=== PATIENT | female | born 1995 | race Caucasian/White ===

== ENCOUNTER 2018-02-07 18:06 | Observation (INO) | payer MEDICAID, SELFPAY ==
[2018-02-07 19:23] LABS: ROM Plus Negative
== END 2018-02-07 20:52 | disposition home or self-care (01) ==
PROVIDERS: Family Medicine; Admitting Provider Family Medicine; PCP Nurse Practitioner; Visit Provider Family Medicine
DX: O60.03 Preterm labor without delivery, third trimester (principal); Z03.71 Encounter for suspected problem with amniotic cavity and membrane ruled out; Z3A.36 36 weeks gestation of pregnancy
CPT/HCPCS: 84112; 87081; G0378

== ENCOUNTER 2018-03-12 22:10 | Inpatient (IN) | payer MEDICAID, SELFPAY ==
[2018-03-13] VITALS (10 sets, daily range): BP systolic 98–116; BP diastolic 56–69; PULSE 60–74; RESP 14–21; TEMP 36.3–36.6; O2SAT 95–98
[2018-03-13] MEDS: Lactated Ringers 1,000 ML 1000 ML IV ×2 (01:19→06:30)
[2018-03-13 06:22] LABS: HCT 29.3 % (36.0-46.0); HGB 9.3 g/dL (12.0-15.5); Mean Corp. HGB Concentration 31.7 g/dL (32.0-36.0); Mean Corpuscular Hemoglobin 23.4 pg (27.0-33.0); Mean Corpuscular Volume 73.8 fL (80-95); Mean Platelet Volume 10.5 fL (8.0-11.0); Platelet Count 338 x1000/uL (130-400); RBC 3.97 m/cumm (4.00-5.20); RBC Distribution Width 16.2 % (11.7-14.6); White Blood Cell Count 6.29 k/cumm (4.4-10.8)
[2018-03-13] MEDS: Normal Saline Flush 10 ML SYR IVP (06:30)
[2018-03-13] MEDS: Sodium Citrate 30 ML CUP PO (06:57)
--- NOTE | 2018-03-13 07:48 | HPE_ITS ---
Date of service: 03/13/18 Time of Service: 07:44 Assessment and Plan (1) Breech or malpresentation convert to cephalic presentation antepartum: Current visit: Yes Status: Acute primary c/section History of Present Illness Chief Complaint: 22 breech Narrative: 40.6 weeks induction + breech presentation Review of Systems Review of Systems All systems reviewed & are unremarkable except as noted in HPI and below PFSH Medical History Feeding by G-tube (Acute) Hypothyroidism (acquired) (Acute) Tracheostomy in place (Acute) Asthma (Chronic) Social History Smoking/Tobacco Use Status: Never Surgical History Status post laryngectomy (Acute) History History 2 2 Para 1 Hx # Term Pregnancies Multiple births Hx # Pregnancies Ectopic pregnancies AB induced Hx Number of Living Children AB spontaneous Meds Home Medications Medication Instructions Recorded Confirmed Type albuterol sulfate 0.63 mg INHALATION QID PRN 03/13/18 03/13/18 History Allergies Allergy/AdvReac Type Severity Reaction Status Date / Time blueberry Allergy Unverified 03/13/18 06:14 cranberry Allergy Unverified 03/13/18 06:14 fentanyl Allergy Unverified 03/13/18 06:14 omeprazole Allergy Unverified 03/13/18 06:14 silver Allergy Unverified 03/13/18 06:14 [From Tegaderm AG Mesh] Exam Const General: cooperative Chest Chest: normal inspection of the chest Resp Percussion: other (tracheostomy, lungs cta) Cardio Rate: regular rate Rhythm: regular rhythm Results Labs : 03/13/18 06:10 Laboratory Results - last 24 hr 03/13/18 03/13/18 06:10 06:10 WBC 6.29 RBC 3.97 L Hgb 9.3 L Hct 29.3 L MCV 73.8 L MCH 23.4 L MCHC 31.7 L RDW 16.2 H Plt Count 338 MPV 10.5 Patient ABO/Rh A Positive Antibody Screen Negative
[2018-03-13] MEDS: Lactated Ringers 1,000 ML 80 ML IV (07:51)
[2018-03-13] MEDS: Bupivacaine 0.25% Pres-Free 10 ML VIAL (09:07)
[2018-03-13] MEDS: Naloxone 0.4 MG/ML VIAL IVP (11:44)
[2018-03-13] MEDS: NALBUPHINE 5 MG in Normal Saline 50 ML 100 MG IVPB (14:33)
[2018-03-13] MEDS: Lactated Ringers 1,000 ML 125 ML IV (14:34)
[2018-03-13] MEDS: Acetaminophen 325 MG TAB 650 MG NG (15:20)
[2018-03-13] MEDS: Ibuprofen 600 MG TAB PO (15:22)
--- NOTE | 2018-03-13 16:36 | SATEXT_ITS ---
Assessment: Ni reports that she gets most of her nutrition via her PEG tube. She does Saltese Instant Breakfast and Boost. She does milk and yogurt and she will also blenderize meals and put them through her tube. She reports that she gets plenty of fluids per her tube to stay well hydrated. She is 63 and 80.7 kg which gives her a BMI of 31.5 kg/m2. I do believe 80.7 kg was her weight prior to delivery. Her estimated energy needs are approximately 2400 kcal/day (30 kcal/kg). Her estimated protein needs are approximately 80 grams per day (1.0g/kg) Her estimated fluid needs are approximately 2400 ml/ day (1 ml/kcal provided/day). Nutritional Diagnosis: Inability to take adequate oral foods and fluids. Intervention: Will provide Ni with nutrition via PEG tube as she does at home. Would recommend a diet order of regular consistency: blenderized and we can send her some blenderized meals should she desire while she is here. Monitoring and Evaluation: 1. Will monitor weight, PEG tube intake. RD and/or CDM will visit Ni to see what she would like per PEG. 2. Will evaluate nutrition care plan ongoing. Thank you for the consult.
--- NOTE | 2018-03-13 16:36 | W.PM.OP ---
Date of service: 03/13/18 Time of Service: 08:00 Operative Note DATE OF PROCEDURE: 03/13/18 PRE-OP DIAGNOSIS: Term Breech Presentation POST-OP DIAGNOSIS: same PROCEDURE: Primary Low Transverse Section SURGEON: Rebecca Waterman ANESTHESIA: spinal ESTIMATED BLOOD LOSS: 300 PATHOLOGY: none sent COMPLICATIONS: None Patient was transported to: PACU Patient's condition: stable Indications: Malpresentation Breech Findings: Vincent breech LSA, normal uterus tubes and ovaries Viable male infant apgars and weight not available at time of dictation Procedure Description: Primary low transverse incision. Patient was brought to the operating room where she was properly identified she was then placed in the sitting position on the operating table and spinal anesthesia was induced without difficulty. She was then placed on the operating table in the dorsal supine position with a left lateral tilt. A vaginal prep with Betadine was performed and then the patient was prepped and draped in the normal sterile fashion. She had a indwelling Hernández catheter and SCD boots and she received 2 g of Ancef preoperatively. Once the patient was prepped and draped in a formal timeout procedure was then performed with all surgical personnel present confirming patient procedure and anesthesia comments. After establishing adequate spinal anesthesia a Pfannenstiel incision was made approximately 2 cm above the symphysis pubis and carried down to the underlying fascia the fascia was nicked in the midline and extended sharply bilaterally with Sehlby scissors. Using the Charley clamps the inferior aspect of the fascia was then grasped bilaterally with Cook clamps tented up the rectus muscles dissected off sharply then the superior aspect of the fascia was grasped grasped bilaterally with Cook clamps tented up the rectus muscles dissected off sharply the rectus muscles in the midline the peritoneum was entered bluntly this was extended superiorly and inferiorly inferiorly with good visualization of the bladder. The bladder blade was then positioned the vesicouterine peritoneum was grasped with a pickup tented up and entered sharply with the Metzenbaum scissors the bladder flap was then created digitally and sharply and the bladder blade was repositioned the lower uterine segment was transversely incised the underlying uterine cavity was clear amniotic fluid and the low transverse incision was extended manually hand inserted into the uterine cavity the was found in the vincent breech sacrum anterior to the left was rotated to sacrum anterior and delivered to the level of the scapula the left shoulder than the right shoulder were delivered there was nuchal cord was loose nuchal cord x3 which was easily reduced the cord was clamped x2 and cut and the infant handed off to the waiting family practitioner . The placenta was then delivered by uterine expression once the placenta was delivered uterus was exteriorized and cleared of all clots and debris. Was closed in 2 layers the first layer of 0 Vicryl in a running locked fashion and the second layer in an imbricating fashion to achieve hemostasis the uterine incision was then inspected there was a small amount of bleeding in the midline of the incision which was made hemostatic by 4 interrupted sutures of 0 Vicryl was a small hematoma in the superior aspect of the serosa which a 0 Vicryl [id number] was placed to minimize expansion. The uterus was returned to the abdomen the gutters were cleared of all clots and debris. The uterine incision was reinspected and found to be hemostatic the peritoneum was then closed with 2-0 Vicryl in a running fashion the muscle and subfascial layer were inspected and found to be hemostatic the muscle was reapproximated with 3 interrupted sutures of 0 Vicryl and the fascia was closed from each apices and tied in the middle. The subcuticular layer was copiously irrigated requiring a small amount of Bovie cautery to achieve hemostasis. The subcuticular layer was closed with 3 oh plain in a running fashion and the skin was closed with 4-0 Monocryl in a subcuticular fashion. Sponge lap needle and instrument count were correct x2 the incision was dressed and the patient was taken to recovery room in stable condition. There is the end of the dictation please send one to the hospital chart 1 to the office as well as thank
[2018-03-13] MEDS: diphenhydrAMINE 50 MG/ML VIAL 25 MG IVP (22:21)
[2018-03-13] MEDS: HYDROmorphone 2 MG/ML VIAL 0.5 MG IVP (22:35)
[2018-03-14] MEDS: HYDROmorphone 2 MG/ML VIAL 0.5 MG IVP ×4 (02:40→22:02)
[2018-03-14] MEDS: NALBUPHINE 5 MG in Normal Saline 50 ML 100 MG IVPB (03:35)
[2018-03-14] MEDS: Levothyroxine 150 MCG TAB NG (05:49)
[2018-03-14] MEDS: diphenhydrAMINE 50 MG/ML VIAL 25 MG IVP ×2 (05:53→21:09)
[2018-03-14 07:16] LABS: HCT 26.5 % (36.0-46.0); HGB 8.1 g/dL (12.0-15.5); Mean Corp. HGB Concentration 30.6 g/dL (32.0-36.0); Mean Corpuscular Hemoglobin 22.9 pg (27.0-33.0); Mean Corpuscular Volume 75.1 fL (80-95); Mean Platelet Volume 10.5 fL (8.0-11.0); Platelet Count 298 x1000/uL (130-400); RBC 3.53 m/cumm (4.00-5.20); RBC Distribution Width 16.2 % (11.7-14.6); White Blood Cell Count 7.78 k/cumm (4.4-10.8)
[2018-03-14] MEDS: Normal Saline Flush 10 ML SYR IVP ×6 (07:58→22:02)
[2018-03-14] MEDS: Albuterol 2.5 MG/3 ML INH SOLN VIAL IH (11:30)
[2018-03-14] MEDS: oxyCODONE 5 mg/Acetaminophen 325 mg TAB NG ×2 (12:03→18:32)
--- NOTE | 2018-03-14 12:21 | W.PM.PROGNOT ---
Date of Service Date of service: 03/14/18 Time of Service: 09:21 Assessment and Plan (1) delivery indicated due to breech presentation: Current visit: Yes Status: Acute (2) delivery delivered: Current visit: Yes Status: Acute Post op DAy #1 WILL SWITCH TO gt PAIN MEDS ambulate macario has been d/c routine post op care Subjective Interval history since last seen: patient reports still feeling pain and torodol make her nauseous she is voiding on own minimal bleeding and doing well Exam Const General: cooperative and no acute distress GI Inspection: normal to inspection Palpation: soft and other Rectal Exam - female: other (inc dsg clean dry and intact) Extrem General: normal to inspection, no pedal edema and no calf tenderness Objective Objective Clinical Data: Abnormal lab results 03/14/18 Range/Units 06:55 RBC 3.53 L (4.00-5.20) m/cumm Hgb 8.1 L (12.0-15.5) g/dL Hct 26.5 L (36.0-46.0) % MCV 75.1 L (80-95) fL MCH 22.9 L (27.0-33.0) pg MCHC 30.6 L (32.0-36.0) g/dL RDW 16.2 H (11.7-14.6) % Vital Signs Temperature 36.5 C 03/13/18 11:10 Pulse 61 03/13/18 11:10 Respiratory Rate 20 03/13/18 11:10 Blood Pressure 105/60 03/13/18 11:10 Pulse Oximetry 97 03/13/18 11:10 Respiratory End-tidal CO2 34 03/13/18 09:51 Oxygen Delivery Method Room Air 03/13/18 11:10 Pain Level 8 03/14/18 12:03 Intake & Output 03/13/18 03/14/18 03/14/18 23:59 11:59 23:59 Intake Total 1350.5 / 1350.5 1050.5 / 1050.5 Balance 1350.5 / 1350.5 1050.5 / 1050.5 Intake: IV 1350.5 / 1350.5 1050.5 / 1050.5 Laboratory Results WBC 7.78 k/cumm (4.4-10.8) 03/14/18 06:55 RBC 3.53 m/cumm (4.00-5.20) L 03/14/18 06:55 Hgb 8.1 g/dL (12.0-15.5) L 03/14/18 06:55 Hct 26.5 % (36.0-46.0) L 03/14/18 06:55 MCV 75.1 fL (80-95) L 03/14/18 06:55 MCH 22.9 pg (27.0-33.0) L 03/14/18 06:55 MCHC 30.6 g/dL (32.0-36.0) L 03/14/18 06:55 RDW 16.2 % (11.7-14.6) H 03/14/18 06:55 Plt Count 298 x1000/uL (130-400) 03/14/18 06:55 MPV 10.5 fL (8.0-11.0) 03/14/18 06:55 Patient ABO/Rh A Positive 03/13/18 06:10 Antibody Screen Negative 03/13/18 06:10
[2018-03-14 18:23] VITALS: TEMP 31
[2018-03-14] MEDS: Metoclopramide 10 MG/2 ML VIAL IVP (19:49)
[2018-03-15] MEDS: oxyCODONE 5 mg/Acetaminophen 325 mg TAB NG (00:34)
[2018-03-15] MEDS: Normal Saline Flush 10 ML SYR IVP ×5 (01:54→18:31)
[2018-03-15] MEDS: HYDROmorphone 2 MG/ML VIAL 0.5 MG IVP ×3 (04:53→14:11)
[2018-03-15] MEDS: Levothyroxine 150 MCG TAB NG (06:37)
[2018-03-15] MEDS: Docusate Sodium 100 MG/10 ML CUP PO ×2 (10:45→20:52)
[2018-03-15] MEDS: Ibuprofen 100 MG/5 ML CUP 800 MG UD ×2 (13:50→20:52)
[2018-03-15] MEDS: diphenhydrAMINE 50 MG/ML VIAL 25 MG IVP (18:31)
[2018-03-15] MEDS: HYDROmorphone 2 MG TAB PO ×2 (18:32→20:53)
--- NOTE | 2018-03-15 19:17 | RESPIRATORY ---
03/15/18-Met with Pt to discuss her respiratory needs while inpt or when going home. Pt communicated with an ipad as she has a tracheostomy in place due to a laryngectomy. Pt states [employer] is her DME for supplies . pt states she has been waiting for saline bullets as she is out and they have not delivered them in quite some time. This RT will call Sarahi Lassiter to see what is needed to ensure Pt receives her supplies on time. Pt also states she likes having the High Flow NC at bedside for humidity. She may use it at bedtime. She has requested I increase the humidity. It was noted to be set at 31C and I have adjusted it 34C. Pt does her own trach care, suctioning, etc..
[2018-03-16] MEDS: Ibuprofen 100 MG/5 ML CUP 800 MG UD (06:13)
[2018-03-16] MEDS: Levothyroxine 150 MCG TAB NG (08:07)
--- NOTE | 2018-03-16 12:24 | W.PM.DS.N ---
DS: Diagnosis Discharge Diagnosis (1) delivery indicated due to breech presentation: Status: Acute (2) delivery delivered: Status: Acute Discharge Plan Disposition Patient Disposition: HOME Condition: Fair Discharge Details Reason For Visit: labor at term with breech presentation Admit Date/Time: 03/13/18 05:59 Admit Provider: Richard Ahmadi Attending Provider: Rebecca Waterman [facility] Hospital Course: Admitted in labor. Noted to be breech and unscheduled LTCS was performed. Artemio Waterman MD was primary surgeon. Male named Wilian. No complications. Pt had C-PaP PRN at night. Pain controlled with PO Dilaudid and Ibuprofen. Discharged to home POD3. Successfully . Incision C/D/I. Able to perform ADLS. Pt had improvement in abdominal pain when given an abdominal binder. Home Meds and New Rx's Prescriptions: New hydromorphone 2 mg Tablet 2 mg PO Q4H PRN PRNQty: 20 RF: 0 ibuprofen 100 mg/5 mL Suspension 800 mg UD QID PRN PRNQty: 240 RF: 0 No Action albuterol sulfate 0.63 mg/3 mL Solution For Nebulization 0.63 mg INHALATION QID PRNRF: 0 Discharge Instructions Additional Instructions: Caring for yourself after a Section Office: Center: Please limit your activity REST, REST, REST. Try not to do more than you were doing in the hospital for the first week, then gradually increase your activity. Limit stair climbing for your first week at home You may take short rides in the car anytime, but do not drive yourself until 2 weeks after your surgery. Begin by taking the car in the driveway or a parking lot. If you cannot sit in the car and turn your body comfortably, it is too soon to drive. Do not drive while taking any narcotic pain medicines. No lifting greater than 10 to 15 pounds for 6 weeks. Nothing in your vagina for 6 weeks - this means no tampons or intercourse. Douching is never recommended. You May Shower and wash your hair at any time. May take a bath once skin incision is healed, usually by 2 to 3 weeks. Do not scrub your incision until skin incision is healed, but it is okay for it to get wet, then pat dry. Return to work 6 weeks after your surgery or as discussed with your doctor. Expect Vaginal bleeding for 6 weeks after surgery. Some fatigue and mood changes. Baby blues are common in the first few weeks. Remember your body is using its energy to heal your surgical site and your sleep is interrupted by night time feedings. Be gentle with yourself and your partner. If the feelings of sadness continue or get worse, please call us. Call immediately if you have any thoughts of harming yourself or your baby. Drink lots of water You will need 8 to 10 glasses of water or juice every day to help prevent constipation and keep a good milk supply. Coffee, tea and soda are not good choices for keeping yourself well hydrated. For constipation, you may use over the counter products such as metamucil, Fibercon, Colace or Milk of Magnesia. Also eat a high fiber diet with lots of fruits and vegetables. Call the office For any signs of infection such as fever greater than 100.4 degrees Fahrenheit, redness or discharge from the incision or foul smelling vaginal discharge. For pain that is getting worse instead of better If you experience any new symptoms such as vomiting For bleeding that is getting heavier rather than java developer consultant If you are not sure whether you need help and the office is closed, you can call the Center nurses for triage. Medications Resume any medications you were taking before delivery. You may use Ibuprofen (Advil, Motrin) 600 mg every 6 hours as needed for pain. If you buy this over the counter it is the same medicine as in a prescription. The over the counter medicine contains 200 mg, so you may take 3 tablets at a time. Instead of Ibuprofen, you may use Naproxen Sodium (Naprosyn, Aleve). You may take 500 mg every 8 to 12 hours as needed for pain. The over the counter medicine is the same as the prescription. The over the counter type contains 220 mg, so you may take 2 tablets at a time. Do not take both Ibuprofen AND Naproxen as they are very similar. Take one OR the other. You may use Acetaminophen (Tylenol) regular strength (325 mg) - take 1 or 2 tablets every 4 hours. You may use this IN ADDITION to Motrin or Naproxen because it works by a different mechanism. You will have a prescription for Dilaudid and Ibuprofen to take at home. Continue to wear your abdominal binder as needed. Follow up appointments We would like to see you one week after surgery to check your incision and remove skin sally if you have them. The Center nurses will schedule this appointment for you before you leave the hospital. We will see you again 6 weeks after your surgery for a complete exam. You may schedule that appointment by calling the office. Please call us with any other questions or concerns. Watch your baby for early feeding cues, to know when your baby is hungry (mouth movements, turns toward finger if cheek gently stroked, sucking on finger or fist). Crying is a late sign of hunger. Expect that your baby will want to eat about every 1.5-3 hours (8-12 feedings per day). If your baby isn't asking to feed, wake your baby for feedings, at least every 3 hours. Once latched, some newborns need encouragement to feed actively throughout a feeding. Breast massage, combined with deep breast compressions, are usually effective in keeping babies awake, and drinking well. Signs that your baby is well include sustained bursts of sucking (10 or more strong sucks in a row, before short pauses, in a full term ), deep and rhythmic jaw movements, frequent swallowing (once milk has come in ), and contentment between feedings. Also, once your milk is in, expect at least 6-8 wet diapers, and 4-6 seedy, loose, yellow bms (poops) everyday. Your baby should return to weight by 10-14 days old. Contact your baby's medical provider if your baby isn't reaching the above goals, or with any concerns about your baby. Also seek help for any of the following: difficulty latching/feeding your baby fussiness or sleepy behaviors at the breast painful if thinking about stopping if you haven't experienced increased breast fullness or size by 5 days after if you have any nipple breakdown/trauma any questions or concerns [place] - Consultation [facility] (22/11 availbility) Or Toll Free Activity:: Activity as Tolerated Equipment/Supplies:: C-Pap Diet:: As Tolerated Discharge Orders Discharge Orders: Discharge Order (Routine); Ordered 03/16/18 Ordered By: Lawanda Jaramillo Discharge Data Discharge Date/Time-TO BE ENTERED AT DEPARTURE: 03/16/18 14:25 Exam Narrative Exam Narrative: Discharge documentation was documented in centricity DS: Data Vitals/I&O Vitals and I&O: Vital Signs Temperature 97.7 F 03/13/18 11:10 Pulse 61 03/13/18 11:10 Respiratory Rate 20 03/13/18 11:10 Blood Pressure 105/60 03/13/18 11:10 Pulse Oximetry 97 03/13/18 11:10 Respiratory End-tidal CO2 34 03/13/18 09:51 Oxygen Delivery Method Hi Flow System 03/14/18 18:23 Oxygen Flow Rate 15 03/14/18 18:23 Fraction of Inspired Oxygen (FIO2) 21 03/14/18 18:23 Pain Level 8 03/15/18 20:52 PFSH Feeding by G-tube (Acute) Hypothyroidism (acquired) (Acute) Tracheostomy in place (Acute) Asthma (Chronic) Status post laryngectomy (Acute) Medical History Feeding by G-tube (Acute) Hypothyroidism (acquired) (Acute) Tracheostomy in place (Acute) Asthma (Chronic) Social History Smoking/Tobacco Use Status: Never Surgical History Status post laryngectomy (Acute) Social History Smoking/Tobacco Use Status: Never
--- NOTE | 2018-03-16 12:40 | DSE_ITS ---
DS: Diagnosis Discharge Diagnosis (1) delivery indicated due to breech presentation: Status: Acute (2) delivery delivered: Status: Acute Discharge Plan Disposition Patient Disposition: HOME Condition: Fair Discharge Details Reason For Visit: labor at term with breech presentation Admit Date/Time: 03/13/18 05:59 Admit Provider: Richard Ahmadi Attending Provider: Rebecca Waterman Primary Care Provider: [facility] Hospital Course Hospital Course: Admitted in labor. Noted to be breech and unscheduled LTCS was performed. Artemio Waterman MD was primary surgeon. Male named Wilian. No complications. Pt had C-PaP PRN at night. Pain controlled with PO Dilaudid and Ibuprofen. Discharged to home POD3. Successfully . Incision C/D/I. Able to perform ADLS. Pt had improvement in abdominal pain when given an abdominal binder. Home Meds and New Rx's Prescriptions: New hydromorphone 2 mg Tablet 2 mg PO Q4H PRN PRNQty: 20 RF: 0 ibuprofen 100 mg/5 mL Suspension 800 mg UD QID PRN PRNQty: 240 RF: 0 No Action albuterol sulfate 0.63 mg/3 mL Solution For Nebulization 0.63 mg INHALATION QID PRNRF: 0 Discharge Instructions Additional Instructions: Caring for yourself after a Section Office: Center: Please limit your activity * REST, REST, REST. Try not to do more than you were doing in the hospital for the first week, then gradually increase your activity. * Limit stair climbing for your first week at home * You may take short rides in the car anytime, but do not drive yourself until 2 weeks after your surgery. Begin by taking the car in the driveway or a parking lot. If you cannot sit in the car and turn your body comfortably, it is too soon to drive. Do not drive while taking any narcotic pain medicines. * No lifting greater than 10 to 15 pounds for 6 weeks. * Nothing in your vagina for 6 weeks - this means no tampons or intercourse. Douching is never recommended. You May * Shower and wash your hair at any time. May take a bath once skin incision is healed, usually by 2 to 3 weeks. * Do not scrub your incision until skin incision is healed, but it is okay for it to get wet, then pat dry. * Return to work 6 weeks after your surgery or as discussed with your doctor. Expect * Vaginal bleeding for 6 weeks after surgery. * Some fatigue and mood changes. Baby blues are common in the first few weeks. Remember your body is using its energy to heal your surgical site and your sleep is interrupted by night time feedings. Be gentle with yourself and your partner. If the feelings of sadness continue or get worse, please call us. Call immediately if you have any thoughts of harming yourself or your baby. Drink lots of water * You will need 8 to 10 glasses of water or juice every day to help prevent constipation and keep a good milk supply. Coffee, tea and soda are not good choices for keeping yourself well hydrated. * For constipation, you may use over the counter products such as metamucil, Fibercon, Colace or Milk of Magnesia. Also eat a high fiber diet with lots of fruits and vegetables. Call the office * For any signs of infection such as fever greater than 100.4 degrees Fahrenheit , redness or discharge from the incision or foul smelling vaginal discharge. * For pain that is getting worse instead of better * If you experience any new symptoms such as vomiting * For bleeding that is getting heavier rather than fish roe processor * If you are not sure whether you need help and the office is closed, you can call the Center nurses for triage. Medications * Resume any medications you were taking before delivery. * You may use Ibuprofen (Advil, Motrin) 600 mg every 6 hours as needed for pain. If you buy this over the counter it is the same medicine as in a prescription. The over the counter medicine contains 200 mg, so you may take 3 tablets at a time. * Instead of Ibuprofen, you may use Naproxen Sodium (Naprosyn, Aleve). You may take 500 mg every 8 to 12 hours as needed for pain. The over the counter medicine is the same as the prescription. The over the counter type contains 220 mg, so you may take 2 tablets at a time. * Do not take both Ibuprofen AND Naproxen as they are very similar. Take one OR the other. * You may use Acetaminophen (Tylenol) regular strength (325 mg) - take 1 or 2 tablets every 4 hours. You may use this IN ADDITION to Motrin or Naproxen because it works by a different mechanism. * You will have a prescription for Dilaudid and Ibuprofen to take at home. Continue to wear your abdominal binder as needed. Follow up appointments * We would like to see you one week after surgery to check your incision and remove skin sally if you have them. [facility] nurses will schedule this appointment for you before you leave the hospital. We will see you again 6 weeks after your surgery for a complete exam. You may schedule that appointment by calling the office. Please call us with any other questions or concerns. Watch your baby for early feeding cues, to know when your baby is hungry ( mouth movements, turns toward finger if cheek gently stroked, sucking on finger or fist). Crying is a late sign of hunger. Expect that your baby will want to eat about every 1.5-3 hours (8-12 feedings per day). If your baby isn't asking to feed, wake your baby for feedings, at least every 3 hours. Once latched, some newborns need encouragement to feed actively throughout a feeding. Breast massage, combined with deep breast compressions, are usually effective in keeping babies awake, and drinking well. Signs that your baby is well include sustained bursts of sucking (10 or more strong sucks in a row, before short pauses, in a full term ), deep and rhythmic jaw movements, frequent swallowing (once milk has come in ), and contentment between feedings. Also, once your milk is in, expect at least 6-8 wet diapers, and 4-6 seedy, loose, yellow bms (poops) everyday. Your baby should return to weight by 10-14 days old. Contact your baby's medical provider if your baby isn't reaching the above goals, or with any concerns about your baby. Also seek help for any of the following: * difficulty latching/feeding your baby * fussiness or sleepy behaviors at the breast * painful * if thinking about stopping * if you haven't experienced increased breast fullness or size by 5 days after * if you have any nipple breakdown/trauma * any questions or concerns [facility] - Consultation [facility] - [facility] (22/11 availbility) Or Toll Free Activity:: Activity as Tolerated Equipment/Supplies:: C-Pap Diet:: As Tolerated Discharge Orders Discharge Orders: Discharge Order (Routine); Ordered 03/16/18 Ordered By: Lawanda Jarmaillo Discharge Data Discharge Date/Time-TO BE ENTERED AT DEPARTURE: 03/16/18 14:25 Exam Narrative Exam Narrative: Discharge documentation was documented in centricity DS: Data Vitals/I&O Vitals and I&O: Vital Signs Temperature 97.7 F 03/13/18 11:10 Pulse 61 03/13/18 11:10 Respiratory Rate 20 03/13/18 11:10 Blood Pressure 105/60 03/13/18 11:10 Pulse Oximetry 97 03/13/18 11:10 Respiratory End-tidal CO2 34 03/13/18 09:51 Oxygen Delivery Method Hi Flow System 03/14/18 18:23 Oxygen Flow Rate 15 03/14/18 18:23 Fraction of Inspired Oxygen (FIO2) 21 03/14/18 18:23 Pain Level 8 03/15/18 20:52 PFSH Feeding by G-tube (Acute) Hypothyroidism (acquired) (Acute) Tracheostomy in place (Acute) Asthma (Chronic) Status post laryngectomy (Acute) Medical History Feeding by G-tube (Acute) Hypothyroidism (acquired) (Acute) Tracheostomy in place (Acute) Asthma (Chronic) Social History Smoking/Tobacco Use Status: Never Surgical History Status post laryngectomy (Acute) Social History Smoking/Tobacco Use Status: Never
== END 2018-03-16 14:25 | disposition home or self-care (01) | DRG 788 ==
PROVIDERS: Admitting Provider Family Medicine; PCP Nurse Practitioner; Visit Provider Obstetrics & Gynecology
PROC: 10D00Z1 Extraction of Products of Conception, Low, Open Approach (ICD-10-PCS; CPT 59514; principal; 2018-03-13 06:30)
DX: O32.1XX0 Maternal care for breech presentation, not applicable or unspecified (principal); O48.0 Post-term pregnancy; Z37.0 Single live birth; Z3A.40 40 weeks gestation of pregnancy; Z93.0 Tracheostomy status; Z93.1 Gastrostomy status
CPT/HCPCS: 59514; 36415; 85027; 86850; 86900; 86901; 99221; 99238; NC; G0378; J0131; J1100; J1200; J2310; J2405; J2590; J2765; J3490; J7613